=== PATIENT | male | born 1945 | race Caucasian/White ===

== ENCOUNTER 2016-11-05 14:30 | Emergency (ER) | payer MEDICARE, OTHER ==
[2016-11-05 17:15] VITALS: BP 144/84
[2016-11-05] MEDS ORDERED: Lidocaine 2% 10 ML* VIAL INJ ONE (17:46)
[2016-11-05] MEDS ORDERED: Lidocaine 2% PF * 5 ML VIAL ONE (17:51)
[2016-11-05] MEDS ORDERED: Lidocaine 2% PF * 5 ML VIAL IV ONE (17:53)
[2016-11-05] MEDS ORDERED: Tetan/Diph/Pertus SYR(Tdap)* 0.5 ML SYR(BOOSTRIX) use SYR IM ONE (17:53)
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
== END 2016-11-05 18:46 | disposition home or self-care (01) ==
LOC: UCEAST 14:30
DX: S01.21XA Laceration without foreign body of nose, initial encounter (principal); S61.511A Laceration without foreign body of right wrist, initial encounter; W20.8XXA Other cause of strike by thrown, projected or falling object, initial encounter; Y93.9 Activity, unspecified; Y92.9 Unspecified place or not applicable; Y99.9 Unspecified external cause status
CPT/HCPCS: 12001; 12011; 90471; 90715; 99211; G0463; J2001

== ENCOUNTER 2016-11-13 14:43 | Emergency (ER) | payer MEDICARE, OTHER ==
[2016-11-13 14:47] VITALS: BP 148/72
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
== END 2016-11-13 14:59 | disposition home or self-care (01) ==
LOC: ED 14:43
DX: S00.01XA Abrasion of scalp, initial encounter (principal); X58.XXXA Exposure to other specified factors, initial encounter; Y93.9 Activity, unspecified; Y92.9 Unspecified place or not applicable; Z87.891 Personal history of nicotine dependence
CPT/HCPCS: 99281

== ENCOUNTER 2018-07-17 06:28 | Day surgery (SDC) | payer MEDICARE ==
--- NOTE | 2018-07-03 07:14 | HP ---
PREOPERATIVE HISTORY AND PHYSICAL: DATE OF ADMISSION/SURGERY: 07/17/18 DATE OF OFFICE VISIT: 07/02/18 ATTENDING SURGEON: Dr. Jerman Matias.* (DICTATED BY JON GONZALEZ) PROCEDURE: Left ulnar nerve in situ decompression at the elbow with transposition, ulnar nerve decompression at the wrist, and carpal tunnel release. CHIEF COMPLAINT: Left wrist. HISTORY OF PRESENT ILLNESS: Sergio is a 73-year-old right-hand dominant male, retired construction job cost estimator, who presented to the clinic with numbness and tingling in his left hand due to ulnar neuropathy and carpal tunnel syndrome. He has failed conservative measures and continues to have numbness and tingling and therefore has agreed to undergo a left ulnar nerve in situ decompression at the elbow with transposition, ulnar nerve decompression at the wrist, and carpal tunnel release with Dr. Matias on 07/17/18. PAST MEDICAL HISTORY: Hypertension, controlled with exercise; GERD; high cholesterol; and sleep apnea. PAST SURGICAL HISTORY: Left knee replacement in 2010, 2 hernia repairs, and tonsillectomy. The patient denies prior complications with anesthesia. MEDICATIONS: 1. Viagra 1 by mouth as needed. 2. Pantoprazole 20 mg 1 by mouth every day. 3. Aspirin 81 mg 1 by mouth every day. ALLERGIES: PENICILLIN, PERCOCET, LIPITOR. FAMILY HISTORY: Positive for heart disease, hypertension, stroke, and alcoholism. Denies family history of DVT or PE. SOCIAL HISTORY: He lives with his spouse. He is a retired construction job cost estimator. He is a former smoker, quit 30 years ago. He reports 3 to 4 alcoholic beverage consumptions per week. He denies illegal drug use. REVIEW OF SYSTEMS: A 14-point review of systems was reviewed with the patient. Positive for current complaint, otherwise negative. Denies fever, chills, chest pain, shortness of breath, history of DVT or PE, history of bleeding disorder. PHYSICAL EXAMINATION GENERAL: A 73-year-old well-developed, well-nourished male, in no acute distress. VITAL SIGNS: Height 67, weight 180, pulse 78, blood pressure 108/70, respiratory rate 18, temperature 98.0, BMI 28.2. HEENT: Normocephalic, atraumatic. PERRLA. Throat clear. NECK: Supple. PULMONARY: Lungs are clear to auscultation bilaterally. No wheezing, rhonchi, or rales. CARDIO: Regular rate and rhythm. S1, S2. No murmurs, gallops, or rubs. No edema. ABDOMEN: Positive bowel sounds. Soft, nontender. NEURO: Alert and oriented x3. Cranial nerves grossly intact. MUSCULOSKELETAL: Left upper extremity: He has mild thenar wasting. Skin is intact. Interosseous muscle wasting, notably in the first webspace. He has +5/ 5 strength to thenar and intrinsic muscle testing. Positive Tinel at the wrist. Positive median nerve compression test. Full range of motion of the elbow, wrist, and hand. Positive Tinel over the elbow. +2 radial pulse. Sensation intact to light touch distally. DIAGNOSTIC STUDIES: Electrodiagnostic studies done by Dr. Noland on 04/29/18 showed moderate left cubital tunnel syndrome and mild left carpal tunnel syndrome. IMPRESSION: 1. Left cubital tunnel syndrome. 2. Left carpal tunnel syndrome. PLAN: The patient is scheduled to undergo a left ulnar nerve in situ decompression at the elbow with transposition, ulnar nerve decompression at the wrist, and carpal tunnel release with Dr. Matias on 07/17/18. He will follow up 10 to 14 days postop for followup and suture removal. JON GONZALEZ [id number]/[facility] #: [id number] MTDD
[~2018-07-17 06:28] MED LIST: Buffered Lidocaine 1% SYRIN* 1 ML/SYRINGE INTRADERM ONE; Lactated Ringers 1000 ML Bag* 1,000 ML IV SCH
[2018-07-17] MEDS ORDERED: Clindamycin 900 MG/D5W BAG(*) 900 MG/50 ML BAG IVPB ONE (06:37)
[2018-07-17] MEDS ORDERED: Midazolam* 1 MG/ML 2 ML VIAL (2 MG) ONE (07:20)
[2018-07-17] MEDS ORDERED: fentaNYL* 50 MCG/ML 2 ML VIAL (100 MCG VIAL) ONE (07:20)
[2018-07-17] MEDS ORDERED: Propofol* 10 MG/ML 20 ML BTL ONE (07:20)
[2018-07-17] MEDS ORDERED: Bupivacaine 0.25% SDV* 30 ML ONE ×2 (07:22→09:38)
[2018-07-17] MEDS ORDERED: Dexamethasone IV* 4 MG/ML 1 ML (4 MG) ONE (07:22)
[2018-07-17] MEDS ORDERED: EPHEDrine (Pressors)* 50 MG/ML VIAL ONE (07:57)
[2018-07-17] MEDS ORDERED: Ondansetron INJ* 2 MG/ML VIAL IV PRN (08:05)
[2018-07-17] MEDS ORDERED: Naloxone* 0.4 MG/ML 1 ML VIAL IV PRN (08:05)
[2018-07-17] MEDS ORDERED: fentaNYL* 50 MCG/ML 2 ML VIAL (100 MCG VIAL) IV PRN (08:05)
[2018-07-17] MEDS ORDERED: HYDROcodone/ACETAMIN 5-325 MG* 1 TAB PO PRN (08:05)
[2018-07-17] MEDS ORDERED: Acetaminophen TAB* 325 MG PO PRN (08:05)
[2018-07-17] MEDS ORDERED: DiMENhydriNATE IV* 50 MG/ML VIAL IV PUSH PRN (08:05)
[2018-07-17] MEDS ORDERED: Ondansetron INJ* 2 MG/ML VIAL ONE (08:42)
[2018-07-17 10:49] VITALS: BP 120/82
--- NOTE | 2018-07-17 14:59 | OP ---
DATE OF OPERATION: 07/17/18 - [facility] DATE OF : 47 SURGEON: Jerman Matias MD. MEMS ENGINEER: JON Collins. An shampoo assistant was needed for the entirety of the procedure to aid in positioning of the arm and retraction. ANESTHESIOLOGIST: Dr. Oconnor. ANESTHESIA: General. PRE-OP DIAGNOSES: 1. Left severe ulnar nerve dysfunction with compression at the wrist and elbow. 2. Left carpal tunnel syndrome. POST-OP DIAGNOSES: 1. Left severe ulnar nerve dysfunction with compression at the wrist and elbow. 2. Left carpal tunnel syndrome. OPERATIVE PROCEDURE: 1. Left ulnar nerve decompression with transposition at the elbow over the anterior transmuscular transposition at the elbow. Please note this was substantially more difficult than typical ulnar nerve decompression at the elbow requiring a transposition and therefore, more time and effort. 2. Left ulnar nerve decompression at the wrist. 3. Left carpal tunnel release. INDICATIONS: Sergio is 73 years old. He has developed severe dysfunction in the left hand. He has wasting at the ulnar innervated intrinsics and carpal tunnel as well. Electrodiagnostic studies had showed severe cubital tunnel syndrome bilaterally as well as severe carpal tunnel syndrome on the right and mild left carpal tunnel syndrome. We had talked about his treatment options. He had wanted to proceed with surgical decompression of the nerve to see if he could get some relief and improvement in the numbness as well as the strength. He wanted to proceed with the left side first. ESTIMATED BLOOD LOSS: 2 mL. COMPLICATIONS: None. FINDINGS: See above and below. DESCRIPTION OF PROCEDURE: Sergio was seen in the preoperative holding area. The correct site, side, and procedure were identified. We came back to the operating room and the arm was prepped and draped in the usual fashion and time- out was performed. The arm was exsanguinated with the Esmarch and the tourniquet was inflated to 250 mmHg. I went ahead and made a longitudinal incision in the proximal palm, which was brought back across the ulnar aspect of the wrist in Millie type fashion. Dissection was carried down and full-thickness flaps were raised off the fascia and off the transverse carpal ligament. The transverse carpal ligament was then released off the radial aspect of the hook of the hamate. Once I completed the release distally with the tenotomy scissors, I came proximally and released the proximal ligament and then the distal antebrachial fascia to a level of several centimeters proximal to the wrist flexion crease. After the carpal tunnel release was done, I then came ulnar to that and I released the fascia overlying Guyon canal. This was quite thick compared to the typical fascia. The ulnar neurovascular bundle was identified deep to that. I released the roof of the canal through its entirety. I then came proximally, released the fascia overlying the neurovascular bundle as well. There were some perforators and some vessels that I had to coagulate with bipolar cautery. I then gently the ulnar artery from the ulnar nerve , again releasing some traversing vessels with the bipolar. The ulnar artery was gently retracted out of the way and the tenotomy scissors were used to perform a full decompression of the ulnar nerve. Lastly, I released the hypothenar fascia overlying the motor branch. The muscle was then released deep to that and then the subfascial layer was released throughout the entirety of the course of the motor branch performing a full decompression of the motor branch. I checked to make sure there was no compression anywhere. Everything was looking good, so we irrigated out the wound and the skin was closed with 4- 0 nylon suture. The arm was then abducted and externally rotated and I made a curvilinear incision over the cubital tunnel. Dissection was carried down and care was taken to preserve the medial antebrachial cutaneous nerve. The fascia overlying the ulnar nerve was released proximally and appendiceal retractor was placed proximally and the release was completed proximally past the arcade of [place]ar[place]. I then came distal and I released Serrano ligament. I then released the superficial FCU fascia. I split the 2 heads of the FCU with an Army-Luck and placed for retraction. I released the subfascial layer. The nerve had been approached upon the medial epicondyle and then deep down around the FCU fascia and was kinked and compressed at that point. The motor branches to the FCU were identified and protected. After the decompression was done, I flexed and extended the elbow and it did look like the nerve was subluxating with any flexion past 90 degrees and [id number] due to a transposition. I raised full-thickness flaps off of the flexor pronator fascia. I then raised step-cut type flaps off the fascia preserving the muscle deep to and just raising the fascial flap. The muscular septi were excised. The leading edge of the FCU fascia was excised. The medial intermuscular septum was excised. A vessel had been in place around the nerve to aid in retraction during the neurolysis and during the dissection. Once I had prepared the fascial flaps and all the soft tissue structures, I was able to perform a little bit of a neurolysis to gain some length off the motor branch down to the FCU. I then was able to transpose the nerve to the correct position. The fascial flaps were then sewn end-to-end with 4-0 Ethibond suture. I flexed and extended the elbow. There was no kinking or compression of the nerve. Everything was looking very good. Hemostasis was obtained with the bipolar and with the Bovie. The wound was irrigated out and subcutaneous tissue was reapproximated with 3-0 Vicryl suture. The skin was closed with 3-0 Monocryl suture and Steri- Strips. The wounds were infiltrated with 0.25% Marcaine. The wounds were dressed with Xeroform, 4x4s, sterile webril, an ABD at the elbow and then sterile Webril and then the long-arm splint was applied. Tourniquet was deflated and the hand pinked up immediately. He was taken to the recovery room in stable condition. [id number]/[facility] #: [id number] ROJELIO
== END 2018-07-17 10:39 | disposition home or self-care (01) ==
LOC: OREAST 06:28
PROVIDERS: ATTEND Orthopaedic Surgery Hand Surgery
DX: G56.22 Lesion of ulnar nerve, left upper limb (principal); G56.02 Carpal tunnel syndrome, left upper limb; I10 Essential (primary) hypertension; G47.33 Obstructive sleep apnea (adult) (pediatric); K21.9 Gastro-esophageal reflux disease without esophagitis
CPT/HCPCS: J1100; J2250; J2405; J2704; J3010

== ENCOUNTER 2018-08-25 09:50 | Day surgery (SDC) | payer MEDICARE ==
[2018-08-25] MEDS ORDERED: Clindamycin 900 MG IVPREMIX(* 900 MG/50 ML SDV IV ONE (10:06)
[2018-08-25] MEDS ORDERED: Naloxone* 0.4 MG/ML 1 ML VIAL IV PRN (13:50)
[2018-08-25] MEDS ORDERED: Ondansetron INJ* 2 MG/ML VIAL IV PRN (13:50)
[2018-08-25] MEDS ORDERED: Bupivacaine 0.25% SDV PF* 10 ML VIAL INJ ONE (13:54)
[2018-08-25] MEDS ORDERED: fentaNYL* 50 MCG/ML 2 ML VIAL (100 MCG VIAL) ONE ×2 (14:31→16:39)
[2018-08-25] MEDS ORDERED: Lidocaine 2% PF * 5 ML VIAL ONE (14:37)
[2018-08-25] MEDS ORDERED: Propofol* 10 MG/ML 20 ML BTL ONE (14:37)
[2018-08-25] MEDS ORDERED: Dexamethasone IV* 4 MG/ML 1 ML (4 MG) ONE (15:34)
[2018-08-25] MEDS: fentaNYL* 50 MCG/ML 2 ML VIAL (100 MCG VIAL) IV PRN ×2 (16:41→17:00)
[2018-08-25 17:27] VITALS: BP 161/93
--- NOTE | 2018-08-26 09:39 | OP ---
DATE OF OPERATION: 08/25/18 [facility] DATE OF : 47 SURGEON: Jerman Matias MD. PROPERTY TECHNICIAN: JON Collins. An surveyor instrument assistant was needed for the procedure to aid in positioning of the arm and retraction. ANESTHESIOLOGIST: Dr. Funes ANESTHESIA: General. PRE-OP DIAGNOSES: 1. Right cubital tunnel syndrome. 2. Right ulnar nerve compression at the wrist. 3. Right carpal tunnel syndrome. POST-OP DIAGNOSES: 1. Right cubital tunnel syndrome. 2. Right ulnar nerve compression at the wrist. 3. Right carpal tunnel syndrome. OPERATIVE PROCEDURE: 1. Right ulnar nerve decompression at the elbow with anterior transmuscular transposition. 2. Right carpal tunnel release. 3. Right ulnar nerve decompression at the wrist. INDICATIONS: Sergio has severe nerve compressions. He has done very well with nerve decompressions on the left. We talked about risks and benefits. He wanted to proceed with surgery on the right. ESTIMATED BLOOD LOSS: 5 mL. COMPLICATIONS: None. FINDINGS: See above and below. DESCRIPTION OF PROCEDURE: Sergio was seen in the preoperative holding area. The correct site, side, and procedure were identified. We came back to the operating room where the arm was prepped and draped in the usual fashion and time-out was performed. The arm was exsanguinated with the Esmarch and the tourniquet was inflated to 250 mmHg. I went ahead and made a longitudinal incision in the proximal palm that was brought back across the wrist in Millie-type fashion. Dissection was carried down and transverse carpal ligament was identified. This was released just off the radial aspect of the hook of the hamate. A Kyra retractor was placed and the release was completed distally. Proximally I retracted the fat ulnarly and then released the remainder of the transverse carpal ligament and distal antebrachial fascia well past the wrist flexion crease. I then came a little more ulnar and identified the roof of Guyon's canal. This was released with the tenotomy scissors. The ulnar nerve vascular bundle was immediately seen. The release was taken all the way down distally freeing up the neurovascular bundle in its entirety and the ulnar artery was seen to transition into the superficial palmar arch. I then released the soft tissue overlying the neurovascular bundle proximally as well. The ulnar nerve was dissected free and the perforating vessels over the nerve were cauterized with the bipolar cautery. The ulnar artery was gently retracted out of the way as was the ulnar nerve and then the motor branch was decompressed by releasing the hypothenar fascia followed by the muscle belly and then the subfascial layer. After I completed the ulnar nerve decompression and the carpal tunnel release, we irrigated out the wound. The skin was closed with 4-0 nylon suture. I then abducted and externally rotated the arm, shoulder, and then I made a curvilinear incision centered over the cubital tunnel. Dissection was carried down. The medial antebrachial cutaneous nerve was identified and protected throughout the case. I went ahead and began the decompression of the nerve just proximal to Serrano's ligament and release was carried out proximally and then I placed an appendiceal retractor and released the soft tissue all the way past the arcade of [place] and then came distally and released the Serrano's ligament. The nerve was perched on the medial epicondyle and dove down underneath the FCU fascia. The superficial FCU fascia was released and 2 muscle bellies were split and then the subfascial layer was released. It was obvious that the nerve had been compressed. The medial antebrachial cutaneous nerve was actually crossing over proximal to the medial epicondyle. I placed a vessel loop around the nerve and then I performed a neurolysis. The motor branches were dissected out. I raised full-thickness flap off of the flexor pronator fascia. The medial intermuscular septum was excised. The leading edge of the FCU fascia was excised. I then raised step cut flaps off of the flexor pronator fascia and released the muscular septi. Once I had a nice muscular bed, I went ahead and transposed my nerve. The two ends of my fascial flaps were sewn end- to-end with 4-0 Ethibond suture. Hemostasis was obtained with the bipolar. 0.25% plain Marcaine was infiltrated out on the operative areas. The wound was irrigated out copiously. Subcutaneous tissue was reapproximated with 3-0 Vicryl sutures. Skin was closed with 3-0 Monocryl and Steri-Strips. Wounds were dressed. Well-padded long-arm splint with a lateral buttress was applied. He was then woken up and taken to the recovery room in stable condition. [id number]/[facility] #: [id number] [facility] H[facility]PITALGeremias
== END 2018-08-25 17:45 | disposition home or self-care (01) ==
LOC: OR 09:50
PROVIDERS: ATTEND Orthopaedic Surgery Hand Surgery
DX: G56.21 Lesion of ulnar nerve, right upper limb (principal); G56.01 Carpal tunnel syndrome, right upper limb; I10 Essential (primary) hypertension; G47.33 Obstructive sleep apnea (adult) (pediatric); K21.9 Gastro-esophageal reflux disease without esophagitis; E78.5 Hyperlipidemia, unspecified
CPT/HCPCS: J1100; J2704; J3010; J3490

== ENCOUNTER 2019-05-17 09:34 | Emergency (ER) | payer MEDICARE ==
--- OUTSIDE RECORDS SUMMARY | 2019-05-17 09:45 | XMS REPORT | Continuity of Care Document ---
:1945 External Reference #:[id number] Author Name Madeline Roldan N.P. (transmitted by agent of provider Dahlia Freeman) Address [facility] [place] [address] Care Team Providers Name Role Phone Christiano Domingo MD - Family Care Team Information Gas Tester [phone] Medicine Problems Active Problems Provider Date Pure hypercholesterolemia Richard Sauceda M.D. Onset: 08/09/2011 Benign essential hypertension Richard Sauceda M.D. Onset: 08/13/2012 Morbid obesity Richard Sauceda M.D. Onset: 08/13/2012 Essential hypertension Richard Sauceda M.D. Onset: 06/02/2015 Lesion of ulnar nerve Jerman Matias MD Onset: 07/29/2018 Carpal tunnel syndrome of left wrist Jerman Matias MD Onset: 07/29/2018 Social History Type Date Description Comments Sex Unknown Tobacco Use Start: Unknown End: Former Cigarette Smoker Unknown Smoking Status Reviewed: 03/27/19 Former Cigarette Smoker ETOH Use consumes 1-2 beers per week Tobacco Use Start: Unknown Patient has never smoked Recreational Drug Use Denies Drug Use Exercise Type/Frequency Exercises regularly Allergies, Adverse Reactions, Alerts Active Allergies Reaction Severity Comments Date PCN rash 01/08/2008 Percocet nausea vomiting constipation 01/08/2008 Lipitor joint ache 08/09/2011 Medications Active Medications SIG Qnty Indications Ordering Provider Date Amlodipine Besylate 1 by mouth twice 180tabs Madeline Roldan, 03/05/2019 daily N.P. 2.5mg Tablets Aspir-Low 1 by mouth every 30tabs Richard Hi 06/02/2015 81mg Tablets day David Sauceda DR 1 po prn 12tabs Unknown Tablets Pantoprazole Sodium 1 by mouth every Unknown day 20mg Tablets DR KING Ginglisa Panoba 2 tabs po in the Unknown Extract morning 60mg Capsules Hyaluronic Acid Unknown 20-60mg Capsules Medications Administered in Office Medication SIG Qnty Indications Ordering Provider Date Technetium TC 99M TetrofMiller hutchinson M.D. 03/05/2019 Per Unit Dose Up To 40 Millicuries Injection Technetium TC 99M TetrofosminMiller M.D. 03/05/2019 Per Unit Dose Up To 40 Millicuries Injection Immunizations Description No Information Available Vital Signs Date Vital Result Comment 03/27/2019 8:05am Height 67 inches 5'7" Weight 191.00 lb with shoes Heart Rate 76 /min BP Systolic Sitting 140 mmHg LA BP Diastolic Sitting 74 mmHg LA BP Systolic Standing 138 mmHg la BP Diastolic Standing 76 mmHg la BP Systolic Recheck 140 mmHg BP Diastolic Recheck 80 mmHg BMI (Body Mass Index) 29.9 kg/m2 Ejection Fraction NONE 01/05/2019 8:18am Height 67 inches 5'7" Weight 188.00 lb without shoes Heart Rate 74 /min radial regular BP Systolic Sitting 174 mmHg Lue reg cuff checked by 2 bp machines BP Diastolic Sitting 92 mmHg Lue reg cuff checked by 2 bp machines BP Systolic Standing 174 mmHg Lue reg cuff checked by 2 bp machines BP Diastolic Standing 92 mmHg Lue reg cuff checked by 2 bp machines BP Systolic Recheck 150 mmHg BP Diastolic Recheck 90 mmHg BMI (Body Mass Index) 29.4 kg/m2 Results Description No Information Available Procedures Date Code Description Status 03/05/2019 92991 Stress Test Completed 03/05/2019 91018 Myocardial Perfusion Imaging Tomographic (Spect) Multiple Completed Studies 01/05/2019 66502 EKG Tracing & Interpretation Completed Medical Devices Description No Information Available Encounters Type Date Location Provider Dx Diagnosis Office Visit 03/27/2019 [facility] Madeline Roldan, I10 Essential ( primary) 8:30a Of [facility] N.P. hypertension R06.02 Shortness of breath E78.5 Hyperlipidemia, unspecified Office Visit 01/05/2019 8:30a [facility] Madeline Romero0 Essential ( primary) Foster, N.P. hypertension I25.10 Athscl heart disease of [place] coronary artery w/o ang pctrs R07.9 Chest pain, unspecified R06.02 Shortness of breath Office Visit 12/02/2018 8:45a [facility] Jerman G56.01 Carpal tunnel at Earnest Matias MD syndrome, right upper limb G56.21 Lesion of ulnar nerve, right upper limb Z47.89 Encounter for other orthopedic aftercare Assessments Date Code Description Provider 03/27/2019 I10 Essential (primary) hypertension Madeline S. Foster, N.P. 03/27/2019 R06.02 Shortness of breath Madeline S. Foster, N.P. 03/27/2019 E78.5 Hyperlipidemia, unspecified Madeline S. Foster, N.P. 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 03/05/2019 R06.02 Shortness of breath Richard Sauceda M.D. 03/05/2019 I25.10 Atherosclerotic heart disease of [place] Richard Sauceda M.D. coronary artery without angina pectoris 01/05/2019 R06.02 Shortness of breath Richard Sauceda M.D. 01/05/2019 I10 Essential (primary) hypertension Madeline S. Foster, N.P. 01/05/2019 I25.10 Atherosclerotic heart disease of [place] Madeline S. Jamar, N.PRachel coronary artery with 01/05/2019 I25.10 Atherosclerotic heart disease of [place] Richard Sauceda M.D. coronary artery with 01/05/2019 R07.9 Chest pain, unspecified Madeline S. Foster, N.P. 01/05/2019 R06.02 Shortness of breath Madeline S. Foster, N.P. 01/05/2019 I10 Essential (primary) hypertension Richard Sauceda M.D. 12/02/2018 G56.01 Carpal tunnel syndrome, right upper limb Jerman Matias MD 12/02/2018 G56.21 Lesion of ulnar nerve, right upper limb Jerman Matias MD 12/02/2018 Z47.89 Encounter for other orthopedic aftercare Jerman Matias MD Plan of Treatment 03/27/2019 - Madeline Roldan, N.P.I10 Essential (primary) hypertensionFollow up: [facility] 10/2019Recommendations:Continue nwunbzsmsrH65.02 Shortness of vdnwvtO49.5 Hyperlipidemia, unspecifiedRecommendations:Will try to obtain lipids from Dr Domingo. Functional Status Description No Information Available Mental Status Description No Information Available Referrals Description No Information Available
[2019-05-17] MEDS ORDERED: NS 0.9% 1000 ML** 1,000 ML IV ONE (09:47)
[2019-05-17 10:08] LABS: ABS Lymphocytes 0.5 10^3/ul (1.0-4.8); ABS Monocytes 0.7 10^3/ul (0-0.8); Eosinophil % 0.1 %; Hematocrit 49 % (42-52); Hemoglobin 16.6 g/dL (14.0-18.0); Lymphocyte % 4.3 %; Mean Corpuscular HGB Conc 34 g/dL (31-36); Mean Corpuscular Hemoglobin 30 pg (27-31); Mean Corpuscular Volume 90 fL (80-94); Mean Platelet Volume 7.2 fL (7.4-10.4); Platelet Count 257 10^3/uL (150-450); Red Blood Count 5.49 10^6 /uL (4.18-5.48); Red Cell Distribution Width 14 % (10-15); White Blood Count 12.2 10^3/uL (3.5-10.8)
[2019-05-17] MEDS ORDERED: Pantoprazole IV* 40 MG IV ONE (10:14)
[2019-05-17] MEDS ORDERED: Ondansetron INJ* 2 MG/ML VIAL IV ONE (10:14)
[2019-05-17] MEDS ORDERED: Al Hydrox/Mg Hydrox/Simet LIQ* 30 ML UDC PO ONE (10:15)
[2019-05-17 10:19] LABS: Albumin 4.7 g/dL (3.2-5.2); Albumin/Globulin Ratio 1.5 (1-3); BUN/Creatinine Ratio 20.6 (8-20); C Reactive Protein 4.19 mg/L (<8.01); Calcium 10.3 mg/dL (8.6-10.3); EGFR African American 86.9 (>60); EGFR Non-African American 71.8 (>60); Globulin 3.1 g/dL (2-4); Magnesium 2.1 mg/dL (1.9-2.7); Total Bilirubin 0.7 mg/dL (0.2-1.0); Total Protein 7.8 g/dL (6.4-8.9)
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
[2019-05-17 11:23] LABS: Influenza A Molecular NEGATIVE (Negative); Influenza B Molecular NEGATIVE (Negative)
[2019-05-17 12:20] VITALS: BP 136/80
== END 2019-05-17 12:17 | disposition home or self-care (01) ==
LOC: ED 09:34
DX: R11.2 Nausea with vomiting, unspecified (principal); R10.13 Epigastric pain; I10 Essential (primary) hypertension; K21.9 Gastro-esophageal reflux disease without esophagitis; F32.9 Major depressive disorder, single episode, unspecified; Z87.891 Personal history of nicotine dependence; Z79.899 Other long term (current) drug therapy; Z88.0 Allergy status to penicillin; Z88.5 Allergy status to narcotic agent; Z88.8 Allergy status to other drugs, medicaments and biological substances
CPT/HCPCS: 36415; 80053; 83605; 83690; 83735; 85025; 86140; 96361; 96374; 96375; 99282; A9270-GY; J2405